=== PATIENT | female | born 1965 | race African-American/Black ===

== ENCOUNTER 2021-08-20 12:58 | Outpatient (CLI) | payer OTHER | END 2021-08-20 12:59 | disposition home or self-care (01) | LOC: CSHWCC 12:58 | PROVIDERS: ATTEND Nurse Practitioner Family | DX: E11.621 Type 2 diabetes mellitus with foot ulcer (principal); L97.419 Non-pressure chronic ulcer of right heel and midfoot with unspecified severity; R60.0 Localized edema ==

== ENCOUNTER 2021-08-29 13:46 | Outpatient (CLI) | payer OTHER | END 2021-08-29 13:47 | disposition home or self-care (01) | LOC: CSHWCC 13:46 | PROVIDERS: ATTEND Nurse Practitioner Family | DX: E11.621 Type 2 diabetes mellitus with foot ulcer (principal); L97.419 Non-pressure chronic ulcer of right heel and midfoot with unspecified severity; R60.0 Localized edema | CPT/HCPCS: 29581; 93923 ==

== ENCOUNTER 2021-09-05 08:14 | Outpatient (CLI) | payer OTHER | END 2021-09-05 08:15 | disposition home or self-care (01) | LOC: CSHWCC 08:14 | PROVIDERS: ATTEND Nurse Practitioner Family | DX: E11.621 Type 2 diabetes mellitus with foot ulcer (principal); L97.419 Non-pressure chronic ulcer of right heel and midfoot with unspecified severity; R60.0 Localized edema | CPT/HCPCS: 11042; 29445 ==

== ENCOUNTER 2021-09-13 10:16 | Outpatient (CLI) | payer OTHER | END 2021-09-13 10:17 | disposition home or self-care (01) | LOC: CSHWCC 10:16 | PROVIDERS: ATTEND Nurse Practitioner Family | DX: E11.621 Type 2 diabetes mellitus with foot ulcer (principal); L97.419 Non-pressure chronic ulcer of right heel and midfoot with unspecified severity; R60.0 Localized edema | CPT/HCPCS: 36416; 99213; G0463 ==

== ENCOUNTER 2021-09-13 12:21 | Inpatient (IN) | payer OTHER ==
[2021-09-13 13:13] LABS: ALT (SGPT) 20 U/L (8-55); AST (SGOT) 39 U/L (5-34); Alkaline Phosphatase 114 U/L (40-110); Anion Gap 19 mmol/L (10-20); BUN (Urea Nitrogen) 40 mg/dL (9.8-20.1); Bilirubin, Total 0.7 mg/dL (0.2-1.2); Calc. Creatinine Clearance 0 mL/min (70-130); Calcium 9.8 mg/dL (7.8-10.44); Carbon Dioxide 17 mmol/L (22-29); Chloride 97 mmol/L (98-107); Estimated GFR 28; Globulin 4.8 g/dL (2.4-3.5); Glucose 389 mg/dL (70-105); Potassium 3.4 mmol/L (3.5-5.1); Protein, Total 7.8 g/dL (6.0-8.3); Sodium 130 mmol/L (136-145)
[2021-09-13 13:26] LABS: Mean Corpuscular HGB CONC 33.8 g/dL (32.0-36.0); Mean Corpuscular Volume 82.6 fl (81.6-98.3); Mean Platelet Volume 10.8 fl (7.4-10.4); Platelet Count 235 10x3/uL (150-450); RBC Distribution Width 13.8 % (11.5-14.5); Red Blood Cell (RBC) Count 3.22 10x6/uL (3.90-5.03)
[2021-09-13] MEDS ORDERED: Cefepime 2 GM VIAL ONE (13:26)
[2021-09-13 13:30] LABS: MDiff Complete? YES
[2021-09-13 13:33] LABS: Band 5 % (5-11); Lymphocytes 3 % (21-51); Monocytes 4 % (0-10); Neutrophil 87 % (42-75); Reactive Lymphocytes 1 % (0-10)
[2021-09-13 13:34] LABS: White Blood Cell (WBC) Count 25.4 10x3/uL (3.5-10.5)
[2021-09-13 13:36] LABS: Anisocytosis SLIGHT = 6-15 cells (100X) (0-5/hpf); Elliptocytes SLIGHT = 2-5 cells (100X) (0-1/hpf); Hypochromia SLIGHT = 6-15 cells (100X) (0-5/hpf)
[2021-09-13 13:37] LABS: Platelet Morphology Comment Appears Adequate; Toxic Granulation SLIGHT
[2021-09-13 14:40] LABS: SARS-CoV-2 NAA Rapid Test Not Detected (NotDetected)
[2021-09-13 15:48] LABS: Lactic Acid 4.1 mmol/L (0.5-2.2)
[2021-09-13] MEDS ORDERED: Linezolid 600 MG in Premix Bag 1 BAG IVPB SCH (16:00)
[2021-09-13] MEDS: Acetaminophen 325 MG TAB PO PRN (18:22)
[2021-09-13] MEDS: Ondansetron PF 4 MG/2 ML Vial IVP PRN (18:24)
[2021-09-13] MEDS: Sodium Chloride 0.9% 1,000 ML IV SCH (18:40)
[2021-09-13 19:35] VITALS: BMI 37.4
[2021-09-13] MEDS: Ondansetron ODT 4 MG TAB PO PRN (20:01)
[2021-09-14] MEDS: Cefepime 2 GM in Sodium Chloride 0.9% 100 ML IVPB SCH ×2 (01:14→17:16)
[2021-09-14] MEDS: Acetaminophen 325 MG TAB PO PRN (04:12)
[2021-09-14] MEDS: Linezolid 600 MG in Premix Bag 1 BAG IVPB SCH ×2 (05:38→17:23)
[2021-09-14 07:35] LABS: Hemoglobin 8.6 g/dL (12.0-15.5); Mean Corpuscular HGB CONC 34.4 g/dL (32.0-36.0); Mean Corpuscular Hemoglobin 27.9 pg (27.0-33.0); Mean Corpuscular Volume 81.2 fl (81.6-98.3); Mean Platelet Volume 10.8 fl (7.4-10.4); Platelet Count 280 10x3/uL (150-450); RBC Distribution Width 13.8 % (11.5-14.5); Red Blood Cell (RBC) Count 3.08 10x6/uL (3.90-5.03); White Blood Cell (WBC) Count 29.8 10x3/uL (3.5-10.5)
[2021-09-14 07:51] LABS: Anion Gap 19 mmol/L (10-20); BUN (Urea Nitrogen) 23 mg/dL (9.8-20.1); Calc. Creatinine Clearance 112 mL/min (70-130); Calcium 9.3 mg/dL (7.8-10.44); Carbon Dioxide 20 mmol/L (22-29); Chloride 100 mmol/L (98-107); Estimated GFR 63; Glucose 437 mg/dL (70-105); Potassium 3.3 mmol/L (3.5-5.1); Sodium 136 mmol/L (136-145)
[2021-09-14 09:00] LABS: MDiff Complete? YES
[2021-09-14 09:06] LABS: Lymphocytes 6 % (21-51); Monocytes 2 % (0-10); Neutrophil 92 % (42-75)
[2021-09-14 09:11] LABS: Platelet Morphology Comment Appears Adequate
[2021-09-14 09:12] LABS: Hypochromia SLIGHT = 6-15 cells (100X) (0-5/hpf)
[2021-09-14] MEDS: Ondansetron PF 4 MG/2 ML Vial IVP PRN ×2 (10:49→17:39)
[2021-09-14] MEDS: Enoxaparin Sodium 40 MG/0.4 ML SYRINGE SC SCH (10:51)
[2021-09-14] MEDS: Sodium Chloride 0.9% 1,000 ML IV SCH ×2 (10:52→21:44)
[2021-09-14] MEDS ORDERED: Dextrose 5% in Water 1,000 ML IV PRN (12:23)
[2021-09-14] MEDS ORDERED: Dextrose 50% Abboject 50 ML SYRINGE SLOW IVP PRN (12:23)
[2021-09-14] MEDS ORDERED: Neomycin-Polymyxin 1 ML AMP ONE (12:23)
[2021-09-14] MEDS ORDERED: Bupivacaine PF 0.5% 30 ML VIAL ONE (12:23)
[2021-09-14] MEDS ORDERED: EPINEPHrine 1 MG/ML AMP ONE (12:23)
[2021-09-14] MEDS ORDERED: SUGAMMADEX SODIUM 200 MG/2 ML VIAL ONE (12:25)
[2021-09-14] MEDS ORDERED: Famotidine/PF 20 mg/2ml Vial ONE (12:25)
[2021-09-14] MEDS ORDERED: Insulin Regular 300 UNITS/3 ML VIAL ONE (12:27)
[2021-09-14] MEDS ORDERED: PROPOFOL 20 ML ONE (12:30)
[2021-09-14] MEDS ORDERED: Lidocaine 2% PF 5 ML VIAL ONE (12:31)
[2021-09-14] MEDS ORDERED: Ondansetron PF 4 MG/2 ML Vial ONE (12:31)
[2021-09-14] MEDS ORDERED: Metoclopramide HCl 10 MG/2 ML VIAL ONE (12:31)
[2021-09-14] MEDS ORDERED: Fentanyl 100 MCG/2 ML VIAL ONE (12:31)
[2021-09-14] MEDS ORDERED: Rocuronium Bromide 10 MG/ML (10ML VIAL) ONE (12:31)
[2021-09-14] MEDS ORDERED: PHENYLEPHRINE-NS 100 MCG/ML 10 ML SYRINGE ONE (12:50)
[2021-09-14] MEDS ORDERED: ePHEDrine Sulfate 50 MG/10 ML VIAL ONE (13:07)
[2021-09-14] MEDS ORDERED: Morphine 2 MG/ML VIAL SLOW IVP PRN (13:29)
[2021-09-14] MEDS ORDERED: Morphine 4 MG/ML VIAL SLOW IVP PRN (13:29)
[2021-09-14] MEDS: Carvedilol 3.125 MG TAB PO SCH (17:24)
[2021-09-14] MEDS: HumuLIN 70/30 (300 UNITS/3 ML VIAL) FS SCH (17:27)
[2021-09-14] MEDS: HumaLOG 300 UNITS/3 ML VIAL SC PRN ×2 (17:30→22:06)
[2021-09-14] MEDS: HYDROcodone/Acetaminophen 10/325 mg Tablet PO PRN (21:43)
[2021-09-14] MEDS: Aspirin 81 mg Enteric Coated Tablet PO SCH (21:44)
[2021-09-15] MEDS: Cefepime 2 GM in Sodium Chloride 0.9% 100 ML IVPB SCH (02:19)
[2021-09-15 05:18] LABS: Hemoglobin 7.3 g/dL (12.0-15.5); Mean Corpuscular HGB CONC 34.8 g/dL (32.0-36.0); Mean Corpuscular Hemoglobin 28.5 pg (27.0-33.0); Mean Platelet Volume 10.9 fl (7.4-10.4); Platelet Count 277 10x3/uL (150-450); RBC Distribution Width 14.2 % (11.5-14.5); Red Blood Cell (RBC) Count 2.56 10x6/uL (3.90-5.03)
[2021-09-15 05:44] LABS: Anion Gap 15 mmol/L (10-20); BUN (Urea Nitrogen) 21 mg/dL (9.8-20.1); Calc. Creatinine Clearance 132 mL/min (70-130); Calcium 8.5 mg/dL (7.8-10.44); Carbon Dioxide 23 mmol/L (22-29); Chloride 103 mmol/L (98-107); Estimated GFR 77; Glucose 136 mg/dL (70-105); Potassium 3.1 mmol/L (3.5-5.1); Sodium 138 mmol/L (136-145)
[2021-09-15] MEDS: Linezolid 600 MG in Premix Bag 1 BAG IVPB SCH ×2 (05:54→18:29)
[2021-09-15 05:55] LABS: MDiff Complete? YES
[2021-09-15 06:04] LABS: Band 4 % (5-11); Lymphocytes 9 % (21-51); Monocytes 8 % (0-10); Neutrophil 79 % (42-75)
[2021-09-15 06:06] LABS: Hypochromia SLIGHT = 6-15 cells (100X) (0-5/hpf)
[2021-09-15 06:07] LABS: Target Cells SLIGHT = 2-5 cells (100X) (0-1/hpf)
[2021-09-15 06:08] LABS: Macrocytosis SLIGHT = 6-15 cells (100X) (0-5/hpf); Platelet Morphology Comment Appears Adequate
[2021-09-15] MEDS ORDERED: Carvedilol 3.125 MG TAB PO SCH (09:00)
[2021-09-15] MEDS: HumuLIN 70/30 (300 UNITS/3 ML VIAL) FS SCH ×2 (10:00→18:30)
[2021-09-15] MEDS: Ondansetron PF 4 MG/2 ML Vial IVP PRN (10:01)
[2021-09-15] MEDS: Enoxaparin Sodium 40 MG/0.4 ML SYRINGE SC SCH (10:01)
[2021-09-15] MEDS: HYDROcodone/Acetaminophen 10/325 mg Tablet PO PRN ×2 (10:01→20:27)
[2021-09-15] MEDS: Carvedilol 3.125 MG TAB PO SCH ×2 (10:02→18:28)
[2021-09-15] MEDS: Sodium Chloride 0.9% 1,000 ML IV SCH (10:02)
[2021-09-15] MEDS: Aspirin 81 mg Enteric Coated Tablet PO SCH ×2 (10:02→20:23)
[2021-09-15] MEDS ORDERED: Piperacillin/Tazobactam 3.375 GM in Sodium Chloride 0.9% 100 ML IVPB SCH (14:00)
[2021-09-15] MEDS ORDERED: Potassium Chloride 20 MEQ TAB PO SCH (14:00)
[2021-09-15] MEDS: Scopolamine 1.5 mg/72 hour Patch TD SCH (14:43)
[2021-09-15] MEDS: Piperacillin/Tazobactam 3.375 GM in Sodium Chloride 0.9% 100 ML IVPB SCH (18:28)
[2021-09-15] MEDS: Acetaminophen 325 MG TAB PO PRN (18:28)
[2021-09-15] MEDS: HumaLOG 300 UNITS/3 ML VIAL SC PRN ×2 (18:31→20:28)
[2021-09-16] MEDS: Piperacillin/Tazobactam 3.375 GM in Sodium Chloride 0.9% 100 ML IVPB SCH ×3 (01:05→17:34)
[2021-09-16] MEDS: Ondansetron ODT 4 MG TAB PO PRN (01:05)
[2021-09-16] MEDS: Sodium Chloride 0.9% 1,000 ML IV SCH ×2 (01:38→17:33)
[2021-09-16 04:13] LABS: Anion Gap 15 mmol/L (10-20); BUN (Urea Nitrogen) 11 mg/dL (9.8-20.1); Calc. Creatinine Clearance 173 mL/min (70-130); Calcium 8.4 mg/dL (7.8-10.44); Carbon Dioxide 27 mmol/L (22-29); Chloride 96 mmol/L (98-107); Estimated GFR 102; Glucose 113 mg/dL (70-105); Sodium 135 mmol/L (136-145)
[2021-09-16 04:16] LABS: Potassium 2.7 mmol/L (3.5-5.1)
[2021-09-16 05:27] LABS: #Eosinphils 0.1 10x3/uL (0.0-0.5); #Monocytes 0.4 10x3/uL (0.0-1.1); #Neutrophils 8.3 10x3/uL (1.5-8.4); %Basophils 0.3 % (0.0-2.0); %Eosinophils 0.8 % (0.0-6.0); %Lymphocytes 19.2 % (18.0-47.0); %Monocytes 3.3 % (0.0-10.0); %Neutrophils 75.5 % (40.0-75.0); Mean Corpuscular HGB CONC 34.4 g/dL (32.0-36.0); Mean Corpuscular Hemoglobin 26.9 pg (27.0-33.0); Mean Corpuscular Volume 78.4 fl (81.6-98.3); Platelet Count 367 10x3/uL (150-450); RBC Distribution Width 13.8 % (11.5-14.5); Red Blood Cell (RBC) Count 3.34 10x6/uL (3.90-5.03)
[2021-09-16] MEDS: Potassium Chloride 20 MEQ TAB PO SCH ×2 (05:39→09:39)
[2021-09-16] MEDS: Linezolid 600 MG in Premix Bag 1 BAG IVPB SCH ×2 (05:39→17:34)
[2021-09-16] MEDS: HumuLIN 70/30 (300 UNITS/3 ML VIAL) FS SCH ×2 (09:37→16:40)
[2021-09-16] MEDS: Enoxaparin Sodium 40 MG/0.4 ML SYRINGE SC SCH (09:38)
[2021-09-16] MEDS: Aspirin 81 mg Enteric Coated Tablet PO SCH ×2 (09:39→20:16)
[2021-09-16] MEDS: Ondansetron PF 4 MG/2 ML Vial IVP PRN (09:39)
[2021-09-16] MEDS: Carvedilol 3.125 MG TAB PO SCH ×2 (09:39→17:33)
[2021-09-16] MEDS ORDERED: Potassium Chloride 20 MEQ TAB PO SCH (14:00)
[2021-09-16] MEDS: HYDROcodone/Acetaminophen 10/325 mg Tablet PO PRN (20:15)
[2021-09-17] MEDS: Sodium Chloride 0.9% 1,000 ML IV SCH ×2 (02:17→14:04)
[2021-09-17] MEDS: Piperacillin/Tazobactam 3.375 GM in Sodium Chloride 0.9% 100 ML IVPB SCH ×3 (02:18→18:09)
[2021-09-17 05:01] LABS: Hemoglobin 8.5 g/dL (12.0-15.5); Mean Corpuscular HGB CONC 34.6 g/dL (32.0-36.0); Mean Corpuscular Hemoglobin 27.5 pg (27.0-33.0); Mean Corpuscular Volume 79.6 fl (81.6-98.3); Mean Platelet Volume 10.1 fl (7.4-10.4); Platelet Count 386 10x3/uL (150-450); RBC Distribution Width 13.4 % (11.5-14.5); Red Blood Cell (RBC) Count 3.09 10x6/uL (3.90-5.03)
[2021-09-17 05:16] LABS: Anion Gap 14 mmol/L (10-20); BUN (Urea Nitrogen) 16 mg/dL (9.8-20.1); Calc. Creatinine Clearance 141 mL/min (70-130); Carbon Dioxide 23 mmol/L (22-29); Chloride 101 mmol/L (98-107); Estimated GFR 83; Glucose 91 mg/dL (70-105); Potassium 3.4 mmol/L (3.5-5.1); Sodium 135 mmol/L (136-145)
[2021-09-17 05:55] LABS: MDiff Complete? YES
[2021-09-17] MEDS: Linezolid 600 MG in Premix Bag 1 BAG IVPB SCH ×2 (05:55→18:10)
[2021-09-17 05:59] LABS: Band 3 % (5-11); Eosinophils 1 % (0-10); Lymphocytes 27 % (21-51); Monocytes 6 % (0-10); Neutrophil 61 % (42-75); Reactive Lymphocytes 2 % (0-10)
[2021-09-17 06:00] LABS: Platelet Morphology Comment Appears Adequate; RBC Morphology Normal
[2021-09-17] MEDS: HYDROcodone/Acetaminophen 10/325 mg Tablet PO PRN ×2 (08:52→23:30)
[2021-09-17] MEDS: Carvedilol 3.125 MG TAB PO SCH ×2 (08:53→18:09)
[2021-09-17] MEDS: HumuLIN 70/30 (300 UNITS/3 ML VIAL) FS SCH ×2 (08:53→18:10)
[2021-09-17] MEDS: Enoxaparin Sodium 40 MG/0.4 ML SYRINGE SC SCH (08:53)
[2021-09-17] MEDS: Aspirin 81 mg Enteric Coated Tablet PO SCH ×2 (08:54→22:13)
[2021-09-17] MEDS ORDERED: Bisacodyl 10 MG SUPP PR SCH (09:00)
[2021-09-17] MEDS ORDERED: Potassium Chloride 20 MEQ in Premix Bag 1 BAG IVPB SCH (09:00)
[2021-09-17] MEDS ORDERED: Polyethylene Glycol 3350 17 GM Packet PO SCH (09:00)
[2021-09-17] MEDS: HumaLOG 300 UNITS/3 ML VIAL SC PRN ×2 (18:12→22:09)
[2021-09-18] MEDS: Sodium Chloride 0.9% 1,000 ML IV SCH ×2 (00:06→15:34)
[2021-09-18] MEDS: Piperacillin/Tazobactam 3.375 GM in Sodium Chloride 0.9% 100 ML IVPB SCH ×3 (02:01→17:47)
[2021-09-18 04:48] LABS: #Eosinphils 0.2 10x3/uL (0.0-0.5); #Monocytes 0.3 10x3/uL (0.0-1.1); #Neutrophils 3.8 10x3/uL (1.5-8.4); %Basophils 0.4 % (0.0-2.0); %Eosinophils 2.8 % (0.0-6.0); %Lymphocytes 34.9 % (18.0-47.0); %Monocytes 4.2 % (0.0-10.0); Hemoglobin 7.4 g/dL (12.0-15.5); Mean Corpuscular HGB CONC 33.3 g/dL (32.0-36.0); Mean Platelet Volume 9.4 fl (7.4-10.4); Platelet Count 340 10x3/uL (150-450); RBC Distribution Width 14.4 % (11.5-14.5); Red Blood Cell (RBC) Count 2.74 10x6/uL (3.90-5.03); White Blood Cell (WBC) Count 6.7 10x3/uL (3.5-10.5)
[2021-09-18 05:01] LABS: Anion Gap 12 mmol/L (10-20); BUN (Urea Nitrogen) 23 mg/dL (9.8-20.1); Calc. Creatinine Clearance 147 mL/min (70-130); Calcium 7.4 mg/dL (7.8-10.44); Carbon Dioxide 24 mmol/L (22-29); Chloride 102 mmol/L (98-107); Estimated GFR 87; Glucose 77 mg/dL (70-105); Potassium 3.6 mmol/L (3.5-5.1); Sodium 134 mmol/L (136-145)
[2021-09-18] MEDS: Linezolid 600 MG in Premix Bag 1 BAG IVPB SCH ×2 (06:03→17:47)
[2021-09-18] MEDS: HYDROcodone/Acetaminophen 10/325 mg Tablet PO PRN ×3 (06:17→16:53)
[2021-09-18] MEDS ORDERED: Piperacillin/Tazobactam 3.375 GM VIAL ONE ×2 (07:53)
[2021-09-18] MEDS: Carvedilol 3.125 MG TAB PO SCH ×2 (08:36→16:54)
[2021-09-18] MEDS: Enoxaparin Sodium 40 MG/0.4 ML SYRINGE SC SCH (08:36)
[2021-09-18] MEDS: Aspirin 81 mg Enteric Coated Tablet PO SCH ×2 (08:36→20:44)
[2021-09-18] MEDS: HumuLIN 70/30 (300 UNITS/3 ML VIAL) FS SCH ×2 (08:37→16:55)
[2021-09-18] MEDS: HumaLOG 300 UNITS/3 ML VIAL SC PRN ×3 (11:42→20:47)
[2021-09-18] MEDS: Scopolamine 1.5 mg/72 hour Patch TD SCH (14:33)
[2021-09-19] MEDS: Piperacillin/Tazobactam 3.375 GM in Sodium Chloride 0.9% 100 ML IVPB SCH ×2 (02:06→12:45)
[2021-09-19] MEDS: Linezolid 600 MG in Premix Bag 1 BAG IVPB SCH (06:05)
[2021-09-19] MEDS: Sodium Chloride 0.9% 1,000 ML IV SCH ×2 (06:09→17:13)
[2021-09-19] MEDS: HumuLIN 70/30 (300 UNITS/3 ML VIAL) FS SCH ×2 (08:56→18:10)
[2021-09-19] MEDS: Aspirin 81 mg Enteric Coated Tablet PO SCH ×2 (08:56→20:53)
[2021-09-19] MEDS: Enoxaparin Sodium 40 MG/0.4 ML SYRINGE SC SCH (08:56)
[2021-09-19] MEDS: Carvedilol 3.125 MG TAB PO SCH ×2 (08:56→18:10)
[2021-09-19] MEDS: HYDROcodone/Acetaminophen 10/325 mg Tablet PO PRN (16:00)
[2021-09-19] MEDS ORDERED: Meropenem 1 GM in Sodium Chloride 0.9% 100 ML IVPB SCH (17:00)
[2021-09-19] MEDS: HumaLOG 300 UNITS/3 ML VIAL SC PRN (20:53)
[2021-09-20] MEDS: Meropenem 1 GM in Sodium Chloride 0.9% 100 ML IVPB SCH ×3 (01:31→16:59)
[2021-09-20] MEDS: HumuLIN 70/30 (300 UNITS/3 ML VIAL) FS SCH ×2 (08:21→16:10)
[2021-09-20] MEDS: Sodium Chloride 0.9% 1,000 ML IV SCH ×2 (08:31→20:27)
[2021-09-20] MEDS: Enoxaparin Sodium 40 MG/0.4 ML SYRINGE SC SCH (08:32)
[2021-09-20] MEDS: Carvedilol 3.125 MG TAB PO SCH ×2 (08:32→16:59)
[2021-09-20] MEDS: Aspirin 81 mg Enteric Coated Tablet PO SCH ×2 (08:32→20:27)
[2021-09-20] MEDS: HYDROcodone/Acetaminophen 10/325 mg Tablet PO PRN ×2 (09:33→20:26)
[2021-09-20] MEDS ORDERED: Sodium Bicarbonate 2.5 MEQ/5 ML VIAL ONE (12:40)
[2021-09-20] MEDS ORDERED: Lidocaine 1% PF 5 ML VIAL ONE (12:40)
[2021-09-20] MEDS: HumaLOG 300 UNITS/3 ML VIAL SC PRN (20:42)
[2021-09-21] MEDS: Meropenem 1 GM in Sodium Chloride 0.9% 100 ML IVPB SCH ×2 (00:32→09:55)
[2021-09-21] MEDS: HumaLOG 300 UNITS/3 ML VIAL SC PRN ×2 (05:31→13:19)
[2021-09-21 09:17] VITALS: TEMP 98.3
[2021-09-21] MEDS: Sodium Chloride 0.9% 1,000 ML IV SCH (10:10)
[2021-09-21] MEDS: Enoxaparin Sodium 40 MG/0.4 ML SYRINGE SC SCH (10:20)
[2021-09-21] MEDS: Aspirin 81 mg Enteric Coated Tablet PO SCH (10:20)
[2021-09-21] MEDS: Carvedilol 3.125 MG TAB PO SCH (10:20)
[2021-09-21] MEDS: HumuLIN 70/30 (300 UNITS/3 ML VIAL) FS SCH (10:21)
[2021-09-21 11:57] VITALS: BP 116/60
[2021-09-21] MEDS ORDERED: Ertapenem 1 GM in Sodium Chloride 0.9% 100 ML IVPB SCH (12:00)
[2021-09-21] MEDS: HYDROcodone/Acetaminophen 10/325 mg Tablet PO PRN (13:15)
[2021-09-21] MEDS: Scopolamine 1.5 mg/72 hour Patch TD SCH (14:00)
== END 2021-09-21 15:20 | disposition home or self-care (01) | DRG 854 ==
LOC: CSHERS 12:21 → CSHERHOLD 15:37 → CSHTELE 16:37
PROVIDERS: ADMIT Family Medicine; ATTEND Internal Medicine
PROC: 3E03329 Introduction of Other Anti-infective into Peripheral Vein, Percutaneous Approach (ICD-10-PCS; 2021-09-13)
PROC: 0QBL0ZZ Excision of Right Tarsal, Open Approach (ICD-10-PCS; principal; 2021-09-14)
PROC: 02HV33Z Insertion of Infusion Device into Superior Vena Cava, Percutaneous Approach (ICD-10-PCS; 2021-09-20)
PROC: B548ZZA Ultrasonography of Superior Vena Cava, Guidance (ICD-10-PCS; 2021-09-20)
DX: A41.9 Sepsis, unspecified organism (principal); N17.9 Acute kidney failure, unspecified; L97.419 Non-pressure chronic ulcer of right heel and midfoot with unspecified severity; M86.8X7 Other osteomyelitis, ankle and foot; E87.1 Hypo-osmolality and hyponatremia; D62 Acute posthemorrhagic anemia; I10 Essential (primary) hypertension; Z20.822 Contact with and (suspected) exposure to COVID-19; I89.0 Lymphedema, not elsewhere classified; E11.69 Type 2 diabetes mellitus with other specified complication; L89.612 Pressure ulcer of right heel, stage 2; K59.03 Drug induced constipation; T40.2X5A Adverse effect of other opioids, initial encounter; E11.42 Type 2 diabetes mellitus with diabetic polyneuropathy; E66.01 Morbid (severe) obesity due to excess calories; E87.6 Hypokalemia; E11.621 Type 2 diabetes mellitus with foot ulcer; Z79.82 Long term (current) use of aspirin; Z79.899 Other long term (current) drug therapy; Z79.4 Long term (current) use of insulin; Z83.3 Family history of diabetes mellitus; Z82.49 Family history of ischemic heart disease and other diseases of the circulatory system; Z88.1 Allergy status to other antibiotic agents; Z68.37 Body mass index [BMI] 37.0-37.9, adult
CPT/HCPCS: 36415; 36416; 36569; 71045; 80048; 80053; 83605; 85025; 87040; 87070; 87076; 87077; 87086; 87149; 87186; 87205; 93005; 93923; 94760; 96365; 96367; 97139; C1751; J0171; J0692; J1335; J1650; J1815; J2001; J2020; J2185; J2405; J2543; J2704; J2765; J3010; J3370; J3480; J3490; J7050; Q0162; S0020; S0028; U0002; U0003; U0005

== ENCOUNTER 2021-09-24 14:14 | Outpatient (CLI) | payer OTHER | END 2021-09-24 14:15 | disposition home or self-care (01) | LOC: CSHWCC 14:14 | PROVIDERS: ATTEND Nurse Practitioner Family | DX: E11.621 Type 2 diabetes mellitus with foot ulcer (principal); L97.419 Non-pressure chronic ulcer of right heel and midfoot with unspecified severity; R60.0 Localized edema | CPT/HCPCS: 29581; 97605 ==

== ENCOUNTER 2021-09-27 14:34 | Outpatient (CLI) | payer OTHER | END 2021-09-27 14:35 | disposition home or self-care (01) | LOC: CSHWCC 14:34 | PROVIDERS: ATTEND Nurse Practitioner Family | DX: E11.621 Type 2 diabetes mellitus with foot ulcer (principal); L97.419 Non-pressure chronic ulcer of right heel and midfoot with unspecified severity; R60.0 Localized edema ==

== ENCOUNTER 2021-10-01 12:49 | Outpatient (CLI) | payer OTHER | END 2021-10-01 12:50 | disposition home or self-care (01) | LOC: CSHWCC 12:49 | PROVIDERS: ATTEND Nurse Practitioner Family | DX: E11.621 Type 2 diabetes mellitus with foot ulcer (principal); L97.419 Non-pressure chronic ulcer of right heel and midfoot with unspecified severity; R60.0 Localized edema | CPT/HCPCS: 29581; 97605 ==

== ENCOUNTER 2021-10-04 11:07 | Outpatient (CLI) | payer OTHER | END 2021-10-04 11:08 | disposition home or self-care (01) | LOC: CSHWCC 11:07 | PROVIDERS: ATTEND Preventive Medicine Undersea and Hyperbaric Medicine | DX: E11.621 Type 2 diabetes mellitus with foot ulcer (principal); L97.419 Non-pressure chronic ulcer of right heel and midfoot with unspecified severity; R60.0 Localized edema | CPT/HCPCS: 11043; 97605 ==

== ENCOUNTER 2021-10-08 08:13 | Outpatient (CLI) | payer OTHER | END 2021-10-08 08:14 | disposition home or self-care (01) | LOC: CSHWCC 08:13 | PROVIDERS: ATTEND Preventive Medicine Undersea and Hyperbaric Medicine | DX: E11.621 Type 2 diabetes mellitus with foot ulcer (principal); L97.419 Non-pressure chronic ulcer of right heel and midfoot with unspecified severity; R60.0 Localized edema | CPT/HCPCS: 29581; 97605 ==

== ENCOUNTER 2021-10-10 11:10 | Outpatient (CLI) | payer OTHER | END 2021-10-10 11:11 | disposition home or self-care (01) | LOC: CSHWCC 11:10 | PROVIDERS: ATTEND Nurse Practitioner Family | DX: E11.621 Type 2 diabetes mellitus with foot ulcer (principal); L97.419 Non-pressure chronic ulcer of right heel and midfoot with unspecified severity; R60.0 Localized edema | CPT/HCPCS: 29581; 97605 ==

== ENCOUNTER 2021-10-16 09:24 | Outpatient (CLI) | payer OTHER | END 2021-10-16 09:25 | disposition home or self-care (01) | LOC: CSHWCC 09:24 | PROVIDERS: ATTEND Preventive Medicine Undersea and Hyperbaric Medicine | DX: E11.621 Type 2 diabetes mellitus with foot ulcer (principal); L97.419 Non-pressure chronic ulcer of right heel and midfoot with unspecified severity; R60.0 Localized edema | CPT/HCPCS: 11042; 99212; G0463 ==

== ENCOUNTER 2021-10-18 09:33 | Outpatient (CLI) | payer OTHER | END 2021-10-18 09:34 | disposition home or self-care (01) | LOC: CSHWCC 09:33 | PROVIDERS: ATTEND Preventive Medicine Undersea and Hyperbaric Medicine | DX: E11.621 Type 2 diabetes mellitus with foot ulcer (principal); L97.419 Non-pressure chronic ulcer of right heel and midfoot with unspecified severity; R60.0 Localized edema | CPT/HCPCS: 29445; 36416 ==

== ENCOUNTER 2021-10-22 09:02 | Outpatient (CLI) | payer OTHER | END 2021-10-22 09:03 | disposition home or self-care (01) | LOC: CSHWCC 09:02 | PROVIDERS: ATTEND Nurse Practitioner Family | DX: E11.621 Type 2 diabetes mellitus with foot ulcer (principal); L97.419 Non-pressure chronic ulcer of right heel and midfoot with unspecified severity; R60.0 Localized edema | CPT/HCPCS: 11042 ==

== ENCOUNTER 2021-10-25 13:09 | Outpatient (CLI) | payer OTHER | END 2021-10-25 13:10 | disposition home or self-care (01) | LOC: CSHWCC 13:09 | PROVIDERS: ATTEND Preventive Medicine Undersea and Hyperbaric Medicine | DX: E11.621 Type 2 diabetes mellitus with foot ulcer (principal); L97.419 Non-pressure chronic ulcer of right heel and midfoot with unspecified severity; R60.0 Localized edema | CPT/HCPCS: 87070; 87077; 87186; 87205 ==

== ENCOUNTER 2021-10-30 15:15 | Emergency (ER) | payer OTHER ==
[2021-10-30 16:37] LABS: #Eosinphils 0.4 10x3/uL (0.0-0.5); #Monocytes 0.5 10x3/uL (0.0-1.1); #Neutrophils 5.7 10x3/uL (1.5-8.4); %Basophils 0.5 % (0.0-2.0); %Eosinophils 4.5 % (0.0-6.0); %Lymphocytes 18.8 % (18.0-47.0); %Monocytes 5.8 % (0.0-10.0); %Neutrophils 70.2 % (40.0-75.0); Hemoglobin 8.4 g/dL (12.0-15.5); Mean Corpuscular HGB CONC 30.1 g/dL (32.0-36.0); Mean Corpuscular Volume 86.4 fl (81.6-98.3); Mean Platelet Volume 9.1 fl (7.4-10.4); Platelet Count 418 10x3/uL (150-450); Red Blood Cell (RBC) Count 3.23 10x6/uL (3.90-5.03); White Blood Cell (WBC) Count 8.2 10x3/uL (3.5-10.5)
[2021-10-30 16:53] LABS: ALT (SGPT) 7 U/L (8-55); AST (SGOT) 12 U/L (5-34); Albumin 3.1 g/dL (3.5-5.0); Alkaline Phosphatase 99 U/L (40-110); Anion Gap 15 mmol/L (10-20); BUN (Urea Nitrogen) 13 mg/dL (9.8-20.1); Bilirubin, Total 0.2 mg/dL (0.2-1.2); Calc. Creatinine Clearance 0 mL/min (70-130); Calcium 8.7 mg/dL (7.8-10.44); Carbon Dioxide 25 mmol/L (22-29); Chloride 105 mmol/L (98-107); Estimated GFR 81; Globulin 4.7 g/dL (2.4-3.5); Glucose 157 mg/dL (70-105); Potassium 3.7 mmol/L (3.5-5.1); Protein, Total 7.8 g/dL (6.0-8.3); Sodium 141 mmol/L (136-145)
[2021-10-30] MEDS ORDERED: Oxacillin 2 GM in Sodium Chloride 0.9% 100 ML IVPB SCH (18:30)
[2021-10-30] MEDS ORDERED: Morphine 2 MG/ML VIAL ONE (18:41)
[2021-10-30] MEDS ORDERED: Ondansetron PF 4 MG/2 ML Vial ONE (19:33)
[2021-10-30 19:37] LABS: Lactic Acid 3.2 mmol/L (0.5-2.2)
[2021-10-30] MEDS ORDERED: Cefepime 2 GM VIAL ONE (20:12)
[2021-10-30] MEDS ORDERED: Linezolid 600 MG in Premix Bag 1 BAG IVPB ONE (20:30)
== END 2021-10-30 21:19 | disposition short-term general hospital (02) ==
LOC: CSHERS 15:15
DX: S91.301A Unspecified open wound, right foot, initial encounter (principal); M86.9 Osteomyelitis, unspecified; R74.02 Elevation of levels of lactic acid dehydrogenase [LDH]; I10 Essential (primary) hypertension; E11.9 Type 2 diabetes mellitus without complications; X58.XXXA Exposure to other specified factors, initial encounter
CPT/HCPCS: 36415; 80053; 83605; 85025; 87040; 87077; 87149; 87186; 96365; 96367; 96375; J0692; J2020; J2270; J2405; J2700; J3490